=== PATIENT | female | born 1990 | race Caucasian/White ===

== ENCOUNTER → 2019-09-08 | Outpatient (CLI) | payer BC ==
[2019-09-08 10:49] LABS: Basophils # (auto) 0.1 uL; Basophils % (auto) 0.7 % (0.0-2.0); Eosinophils # (auto) 0.1 uL; Eosinophils % (auto) 0.7 % (0.0-7.0); Hematocrit 33.6 % (36.0-46.0); Hemoglobin 11.3 g/dL (12.2-16.2); Lymphocytes # (auto) 1.5 uL; Lymphocytes % (auto) 17.1 % (10.0-50.0); Mean Corpuscular Hemoglobin 27.1 pg (28.0-32.0); Mean Corpuscular Hgb Conc. 33.7 g/dL (32.0-36.0); Mean Corpuscular Volume 80.6 fL (80.0-100.0); Monocytes # (auto) 0.4 uL; Monocytes % (auto) 4.5 % (0.0-12.0); Neutrophils # (auto) 6.8 uL; Platelet Count (auto) 324 10^3/uL (140-450); Red Blood Cells 4.17 10^6/uL (4.0-5.20); Red Cell Distribution Width 13.9 % (11.8-14.3); White Blood Cell 8.9 10^3/uL (4.4-10.8)
[2019-09-08 12:10] LABS: Partial Thromboplastin Time 24.5 sec (23.64-32.05)
[2019-09-08 12:11] LABS: INR 1.01 (0.9-1.15)
== END | disposition home or self-care (01) ==
LOC: LAB 10:36
PROVIDERS: ATTEND Obstetrics & Gynecology
DX: O26.892 Other specified pregnancy related conditions, second trimester (principal); S60.222A Contusion of left hand, initial encounter; Z3A.19 19 weeks gestation of pregnancy
CPT/HCPCS: 36415; 85025; 85384; 85610; 85730

== ENCOUNTER 2019-12-09 11:55 | Observation (INO) | payer BC ==
[2019-12-09] MEDS ORDERED: PREN-96 PO (12:22)
== END 2019-12-09 12:40 | disposition home or self-care (01) | DRG 951 ==
LOC: LDRP 11:55
PROVIDERS: ADMIT Specialist; ATTEND Specialist
DX: Z34.93 Encounter for supervision of normal pregnancy, unspecified, third trimester (principal); Z87.51 Personal history of pre-term labor; Z3A.37 37 weeks gestation of pregnancy
CPT/HCPCS: 59025; 81002; G0378

== ENCOUNTER 2019-12-13 07:50 | Observation (INO) | payer BC ==
[~2019-12-13 07:50] MED LIST: PREN-96 PO
== END 2019-12-13 10:10 | disposition home or self-care (01) | DRG 951 ==
LOC: LDRP 07:50
PROVIDERS: ADMIT Specialist; ATTEND Specialist
DX: Z34.93 Encounter for supervision of normal pregnancy, unspecified, third trimester (principal); Z3A.33 33 weeks gestation of pregnancy; Z87.51 Personal history of pre-term labor
CPT/HCPCS: 59025; 76815; 81002; G0378

== ENCOUNTER 2019-12-20 07:20 | Observation (INO) | payer BC | END 2019-12-20 09:13 | disposition home or self-care (01) | DRG 833 | LOC: LDRP 07:20 | PROVIDERS: ADMIT Obstetrics & Gynecology; ATTEND Obstetrics & Gynecology | DX: O60.03 Preterm labor without delivery, third trimester (principal); Z3A.34 34 weeks gestation of pregnancy; Z87.51 Personal history of pre-term labor | CPT/HCPCS: 59025; 76815; 81002; G0378 ==

== ENCOUNTER 2020-01-20 08:43 | Observation (INO) | payer BC | END 2020-01-20 10:40 | disposition home or self-care (01) | DRG 833 | LOC: LDRP 08:43 | PROVIDERS: ADMIT Specialist; ATTEND Specialist | DX: O60.03 Preterm labor without delivery, third trimester (principal); Z3A.38 38 weeks gestation of pregnancy | CPT/HCPCS: 59025; 76818; 81002; G0378 ==

== ENCOUNTER 2020-01-20 23:50 | Observation (INO) | payer BC ==
[~2020-01-20] VITALS: Ht 167.6 cm; Wt 94.3 kg
[2020-01-21] MEDS ORDERED: LACT. RINGERS/OXYTOCIN 20UNITS 1,000 ML IV SCH (02:23)
[2020-01-21] MEDS ORDERED: LACTATED RINGER'S 1,000 ML IV SCH (02:23)
[2020-01-21] MEDS ORDERED: LIDOCAINE 2%HCL (LOCAL ANESTH.) INJ 20ML MDV ID ONE (02:30)
[2020-01-21] MEDS ORDERED: WITCH HAZEL-GLYCERIN PAD TOP PRN (02:30)
[2020-01-21] MEDS ORDERED: CARBOPROST TROMETHAMINE 250 MCG/1ML VIAL IM PRN (02:30)
[2020-01-21] MEDS ORDERED: PHISODERM TOP SOLN 240ML BTL TOP PRN (02:30)
[2020-01-21] MEDS ORDERED: DERMOPLAST 60ML BOTTLE TOP PRN (02:30)
[2020-01-21] MEDS ORDERED: METHYLERGONOVINE MALEATE 0.2 MG/ML AMP IM PRN (02:30)
[2020-01-21 03:19] LABS: Basophils # (auto) 0 10 ^3/uL (0-0.2); Eosinophils # (auto) 0 10 ^3/uL (0-0.8); Monocytes # (auto) 0.5 10 ^3/uL (0-1.3)
[2020-01-21 03:22] LABS: Basophils % (auto) 0.2 % (0.0-2.0); Eosinophils % (auto) 0.1 % (0.0-7.0); Hematocrit 27.3 % (36.0-46.0); Hemoglobin 8.7 g/dL (12.2-16.2); Lymphocytes # (auto) 1.2 10 ^3/uL (0.4-5.4); Lymphocytes % (auto) 8.3 % (10.0-50.0); Mean Corpuscular Hgb Conc. 31.7 g/dL (32.0-36.0); Mean Corpuscular Volume 66.1 fL (80.0-100.0); Monocytes % (auto) 3.4 % (0.0-12.0); Neutrophils # (auto) 12.2 10 ^3/uL (1.6-8.6); Nucleated Red Blood Cells % 0.2 %; Platelet Count (auto) 382 10^3/uL (140-450); Red Blood Cells 4.13 10^6/uL (4.0-5.20); Red Cell Distribution Width 16.9 % (11.8-14.3); White Blood Cell 13.8 10^3/uL (4.4-10.8)
[2020-01-21 03:36] LABS: Urine Bacteria FEW /hpf (None Seen); Urine Blood Negative /uL (Negative); Urine Specific Gravity 1.013 (1.001-1.035); Urine WBC 1 /hpf (0 - 5)
[2020-01-21 03:38] LABS: Calcium 9.1 mg/dL (8.5-10.1); Potassium 3.8 mmol/L (3.5-5.1)
[2020-01-21 03:40] LABS: BUN/Creatinine Ratio 17.3; INR 0.96 (0.9-1.15); Partial Thromboplastin Time 24.1 sec (23.64-32.05)
[2020-01-21 03:42] LABS: Bilirubin, Total 0.3 mg/dL (0.2-1.0); Total Protein 7.4 g/dL (6.4-8.2)
[2020-01-21 03:49] LABS: Amphetamine Screen, Urine NEGATIVE (NEGATIVE); Barbiturate Scree,Urine NEGATIVE (NEGATIVE); Benzodiazephine Screen, Urine NEGATIVE (NEGATIVE); Cannabinoid Screen, Urine NEGATIVE (NEGATIVE); Cocaine Screen, Urine NEGATIVE (NEGATIVE); Opiate Scree,Urine NEGATIVE (NEGATIVE); Phencyclidine Screen, Urine NEGATIVE (NEGATIVE)
[2020-01-21] MEDS ORDERED: ACETAMINOPHEN 325 MG TAB PO PRN (04:15)
[2020-01-21] MEDS: IBUPROFEN 600 MG TAB PO PRN ×3 (09:05→23:13)
[2020-01-21 10:30] VITALS: BP 128/79
[2020-01-21 15:30] VITALS: BP 130/80
[2020-01-21 19:20] VITALS: BP 134/74
[2020-01-21 23:10] VITALS: BP 117/71
[2020-01-22 03:00] VITALS: BP 126/58
[2020-01-22 06:30] VITALS: BP 135/88
[2020-01-22 14:20] VITALS: BP 130/78
== END 2020-01-22 14:20 | disposition home or self-care (01) | DRG 833 ==
LOC: LDRP 23:50
PROVIDERS: ADMIT Specialist; ATTEND Specialist
DX: O60.03 Preterm labor without delivery, third trimester (principal); Z3A.38 38 weeks gestation of pregnancy
CPT/HCPCS: 36415; 80053; 80307; 81001; 84112; 85025; 85610; 85730; 86850; 86900; 86901; 96361; 96366; G0378; J2590; 59409